=== PATIENT | male | born 1940 | race Caucasian/White ===

== ENCOUNTER → 2023-01-03 07:25 | Outpatient (CLI) | payer MEDICARE, SELFPAY ==
--- NOTE | 2023-01-03 | DI.MRI.S_ITS ---
PROCEDURE: MR ANKLE LT WO CON INDICATIONS: Pain in left ankle and joints of left foot TECHNIQUE: Noncontrast sagittal T1 spin echo and T2 fast spin echo with fat saturation, axial proton density fast spin echo and T2 fast spin echo with fat saturation, coronal T1 spin echo and T2 fast spin echo with fat saturation through the ankle/hindfoot. Additional axial and sagittal fat-suppressed T2-weighted sequences were obtained through the forefoot. COMPARISON: [facility], CR, XR ANKLE 3 VIEWS WEIGHT BEARING LEFT, 12/22/2022, 10:58. FINDINGS: Image quality: Excellent. Bones and joints: No bone marrow contusions or fractures. No hindfoot coalitions. No osteochondral injuries of the talar dome. Mild osseous edema and cystic changes within the central calcaneus are most likely degenerative, although a mild osseous contusion is not excluded. Degenerative changes are seen at the 3rd tarsometatarsal joint with subchondral cystic changes. Soft tissue edema is seen surrounding the ankle. Medial structures: The deep and superficial layers of the deltoid ligament appear intact. The spring ligament components are intact. There is complete tearing of the posterior tibialis tendon approximately 2 cm from its navicular attachment with proximal retraction of the torn tendon stump by at least 2.5 cm. The retracted tendon appears tendinotic and demonstrates intrasubstance tearing. The flexor hallucis longus and flexor digitorum longus tendons are intact. The posterior tibial neurovascular bundle appears normal within the tarsal tunnel, without extrinsic mass effect. An accessory soleus muscle is seen along the posterior tarsal tunnel inserting onto the medial calcaneus, a normal anatomic variant. Lateral structures: The anterior and posterior tibiofibular ligaments appear intact. There is thickening of the anterior talofibular ligament and the calcaneofibular ligament compatible with remote prior sprains. Two accessory ossicles are seen along the course of the peroneus longus tendon and there appears to be intact tendon between the ossicles rather than a fractured and displaced os peroneum. The peroneus brevis tendon is intact. There is normal fat signal in the sinus tarsi. Anterior structures: The tibialis anterior, extensor hallucis longus, and extensor digitorum longus tendons appear intact. Posterior and plantar structures: Achilles tendon is intact. There is mild thickening of the proximal plantar fascia without surrounding edema, consistent with chronic fasciitis. No abductor digiti quinti muscle atrophy to suggest Roche neuropathy. Forefoot: Included images of the forefoot demonstrate no acute trabecular bone injury. Lisfranc ligament appears to be intact. Mild degenerative changes are seen at the 1st metatarsophalangeal joint and in the interphalangeal joints of the toes. No signs of plantar plate tear. IMPRESSION: 1. Complete tearing of the distal posterior tibialis tendon with proximal tendon retraction measuring at least 2.5 cm. The retracted tendon stump demonstrates tendinosis and partial intrasubstance tearing. 2. Remote prior grade 1-2 sprains of the anterior talofibular ligament and the calcaneofibular ligament. 3. Mild degenerative changes at the 3rd tarsometatarsal joint and within the central calcaneus. 4. Mild chronic proximal plantar fasciitis. Approved by: Raymon Mustafa M.D. on 01/03/2023 at 20:10
== END ==
PROVIDERS: PCP Internal Medicine Geriatric Medicine; Referring Provider Internal Medicine Geriatric Medicine; Visit Provider Internal Medicine Geriatric Medicine
DX: S96.812A Strain of other specified muscles and tendons at ankle and foot level, left foot, initial encounter (principal); S93.492A Sprain of other ligament of left ankle, initial encounter; S93.412A Sprain of calcaneofibular ligament of left ankle, initial encounter; M25.572 Pain in left ankle and joints of left foot; M25.472 Effusion, left ankle; M72.2 Plantar fascial fibromatosis
CPT/HCPCS: 73721